=== PATIENT | female | born 1945 | race Two or more races ===

== ENCOUNTER → 2019-09-30 | Emergency (ER) | payer OTHER ==
[~2019-09-30] VITALS: Ht 149.9 cm; Wt 54.4 kg
[~2019-09-30] MED LIST: BUTALB-ACETAMI1 EACH; CLONAZEPAM0.25 MG; COZAAR25 MG
== END | disposition left against medical advice (07) ==
LOC: ER 14:07
DX: Z53.20 Procedure and treatment not carried out because of patient's decision for unspecified reasons (principal)